=== PATIENT | female | born 1970 | race Caucasian/White ===

== ENCOUNTER 2018-10-28 00:11 | Emergency (ER) | payer OTHER, MEDICARE ==
--- NOTE | 2018-10-28 00:56 | EDM.PDOC ---
ED HPI GENERAL MEDICAL PROBLEM - General Chief Complaint: ENT Problem Stated Complaint: POSSIBLE STREP THROAT Time Seen by Provider: 10/28/18 00:45 Source of Information: Reports: Patient, Old Records, RN History Limitations: Reports: No Limitations - History of Present Illness INITIAL COMMENTS - FREE TEXT/NARRATIVE: 47 yo female here with recent onset of sore throat. Is concerned about strep. Does not need a note for work. Is on immunotherapy for Crohn's Dz. Onset: Gradual Onset Date: 10/27/18 Duration: Hour(s):, Getting Worse Location: Reports: Neck (throat) Quality: Reports: Burning Severity: Moderate Improves with: Reports: Medication Worsens with: Reports: Other (?) Context: Reports: Other (See HPI) Associated Symptoms: Reports: Fever/Chills. 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 Pain Score (Numeric/FACES): 9 - Related Data Allergies Allergy/AdvReac Type Severity Reaction Status Date / Time cephalexin [Cephalexin] Allergy Swelling Verified 10/28/18 00:26 iodine Allergy Hives Verified 10/28/18 00:26 morphine Allergy Hives Verified 10/28/18 00:26 Home Meds: Home Meds Pregabalin [Lyrica] 200 mg PO DAILY 10/28/18 [History] Ustekinumab [Stelara] 45 mg SQ Q2M 10/28/18 [History] oxyCODONE HCl [Oxycodone HCl] 30 mg PO 6XDAY 10/28/18 [History] Past Medical History Gastrointestinal History: Reports: Other (See Below) Other Gastrointestinal History: crohn s Genitourinary History: Reports: Renal Calculus, UTI, 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: Immunologic History: Reports: Immunosuppression - Past Surgical History GI Surgical History: Reports: Appendectomy, Colon, Lysis of Adhesions, Small Bowel, Other (See Below) Other GI Surgeries/Procedures: removal of abscess Female Surgical History: Reports: Section Social & Family History - Tobacco Use Smoking Status *Q: Current Every Day Smoker Years of Tobacco use: 28 Packs/Tins Daily: 0.5 - Caffeine Use Caffeine Use: Reports: Coffee, Soda - Recreational Drug Use Recreational Drug Use: No ED ROS ENT - Review of Systems Review Of Systems: See Below Constitutional: Reports: Fever, Chills, Malaise HEENT: Reports: Throat Pain Respiratory: Reports: No Symptoms Cardiovascular: Reports: No Symptoms Endocrine: Reports: No Symptoms GI/Abdominal: Reports: No Symptoms : Reports: No Symptoms Skin: Reports: No Symptoms Neurological: Reports: No Symptoms ED EXAM, ENT - Physical Exam Exam: See Below Exam Limited By: No Limitations General Appearance: Alert, WD/WN, No Apparent Distress Eye Exam: Bilateral Eye: Normal Inspection Ears: Normal External Exam, Normal Canal, Hearing Grossly Normal, Normal TMs Nose: Normal Inspection, Normal Mucousa, No Blood Mouth/Throat: Normal Lips, Pharyngeal Erythema, Tonsillar Erythema, Tonsillar Exudates Head: Atraumatic, Normocephalic Extremities: Normal Inspection Neurological: Alert, Oriented, CN II-XII Intact, Normal Cognition, No Motor/ Sensory Deficits Psychiatric: Normal Affect, Normal Mood Skin: Warm, Dry, Intact, Normal Color, No Rash Course - Vital Signs Last Recorded V/S: Last Vital Signs Temp 36.3 C 10/28/18 00:32 Pulse 89 10/28/18 00:32 Resp 18 10/28/18 00:32 BP 119/75 10/28/18 00:32 Pulse Ox 92 L 10/28/18 00:32 Departure - Departure Time of Disposition: 00:54 Disposition: Home, Self-Care 01 Condition: Fair Clinical Impression: Strep tonsillitis - Discharge Information *PRESCRIPTION DRUG MONITORING PROGRAM REVIEWED*: No *COPY OF PRESCRIPTION DRUG MONITORING REPORT IN PATIENT LEIDA: No Instructions: Strep Throat Referrals: Mustapha Torres MD [Primary Care Provider] - Additional Instructions: Take cephalexin as directed for your infection. Wash your hands often to prevent spread. Use acetaminophen or [place] for pain relief. Drink ample fluids and get plenty of rest. Recheck if worse.
== END 2018-10-28 01:09 | disposition home or self-care (01) ==
LOC: JP.ED 00:11
DX: J03.00 Acute streptococcal tonsillitis, unspecified (principal); F17.210 Nicotine dependence, cigarettes, uncomplicated; Z88.1 Allergy status to other antibiotic agents; Z88.5 Allergy status to narcotic agent; Z91.048 Other nonmedicinal substance allergy status; Z79.899 Other long term (current) drug therapy; Z87.442 Personal history of urinary calculi
CPT/HCPCS: 87880-QW; 99283

== ENCOUNTER 2022-04-10 20:09 | Emergency (ER) | payer BC, MEDICARE ==
[2022-04-10 20:57] LABS: ESTIMATED GFR 78 mL/min (>60)
[2022-04-10] MEDS ORDERED: Potassium Chloride 10 MEQ in Premix Bag 1 BAG IV ONE (20:59)
[2022-04-10] MEDS ORDERED: Sodium Chloride 0.9% 10 ML Syringe FLUSH PRN (20:59)
[2022-04-10] MEDS: Potassium Chloride 10 MEQ in Premix Bag 1 BAG IV ONE ×4 (22:51→23:40)
[2022-04-11] MEDS: Potassium Chloride 10 MEQ in Premix Bag 1 BAG IV ONE ×2 (00:40)
== END 2022-04-11 02:05 | disposition home or self-care (01) ==
LOC: JP.ED 20:09
DX: E87.6 Hypokalemia (principal); K91.2 Postsurgical malabsorption, not elsewhere classified; I44.4 Left anterior fascicular block; Z88.1 Allergy status to other antibiotic agents; Z88.5 Allergy status to narcotic agent; Z91.041 Radiographic dye allergy status; Z79.899 Other long term (current) drug therapy
CPT/HCPCS: 36415; 80048; 83735; 84132; 93005; 96365; 96366; 99285; J3480; J3490

== ENCOUNTER 2023-06-18 10:46 | Emergency (ER) | payer BC, MEDICARE ==
[2023-06-18] MEDS: Prochlorperazine 10 MG/2 ML SDV IVPUSH ONE (12:06)
[2023-06-18] MEDS: Ketorolac 15 MG/ML SDV IVPUSH ONE (12:06)
[2023-06-18] MEDS: Sodium Chloride 0.9% 1,000 ML IV SCH (12:06)
[2023-06-18 12:33] LABS: A/G RATIO 0.9 (1.2-2.2); ALANINE AMINOTRANSFERASE,ALT 15 U/L (12-78); ALBUMIN 3.7 g/dL (3.4-5.0); ALKALINE PHOSPHATASE 116 U/L (46-116); ANION GAP 11.1 mmol/L (5.0-14.0); ASPARTATE AMNIOTRANSFERASE,AST 13 U/L (15-37); BILIRUBIN TOTAL 0.4 mg/dL (0.2-1.0); BLOOD UREA NITROGEN,BUN 9 mg/dL (7-18); CALCIUM 9.8 mg/dL (8.5-10.1); CARBON DIOXIDE,CO2 28 mmol/L (21-32); CHLORIDE,CL 102 mmol/L (100-108); EST CRCL DRUG DOSING (CG) 55.06 mL/min; ESTIMATED GFR 68 mL/min (>60); GLUCOSE RANDOM 131 mg/dL (74-106); MAGNESIUM 1.7 mg/dL (1.8-2.4); POTASSIUM,K 3.8 mmol/L (3.6-5.2); PROTEIN TOTAL,TP 7.8 g/dL (6.4-8.2); SODIUM,NA 141 mmol/L (140-148)
[2023-06-18 12:34] LABS: TROPONIN I HIGH SENSITIVITY < 4.0 pg/mL (<=60.3)
[2023-06-18] MEDS: oxyCODONE 5 MG Tab PO ONE (13:44)
== END 2023-06-18 15:05 | disposition home or self-care (01) ==
LOC: JP.ED 10:46
DX: R11.2 Nausea with vomiting, unspecified (principal); F17.200 Nicotine dependence, unspecified, uncomplicated; Z88.1 Allergy status to other antibiotic agents; Z91.041 Radiographic dye allergy status; Z88.5 Allergy status to narcotic agent; Z88.8 Allergy status to other drugs, medicaments and biological substances
CPT/HCPCS: 36415; 80053; 83735; 84484; 85025; 93005; 93010; 96361; 96374; 96375; 99283; 99284-25; A9270-GY; J0780; J1885; J7030

== ENCOUNTER 2023-08-07 18:12 | Emergency (ER) | payer BC, MEDICARE ==
[2023-08-07] MEDS: HYDROmorphone 2 MG Tab PO ONE (20:03)
== END 2023-08-07 20:12 | disposition home or self-care (01) ==
LOC: JP.ED 18:12
DX: K50.90 Crohn's disease, unspecified, without complications (principal); K90.829 Short bowel syndrome, unspecified; Z79.891 Long term (current) use of opiate analgesic; Z88.1 Allergy status to other antibiotic agents; Z91.041 Radiographic dye allergy status; Z88.5 Allergy status to narcotic agent; Z79.899 Other long term (current) drug therapy; F17.210 Nicotine dependence, cigarettes, uncomplicated
CPT/HCPCS: 99281; A9270

== ENCOUNTER 2023-09-27 14:42 | Emergency (ER) | payer BC, MEDICARE ==
[2023-09-27] MEDS ORDERED: Naloxone 0.4 MG/ML SDV IVPUSH PRN (15:31)
[2023-09-27] MEDS ORDERED: Pregabalin 75 MG Cap PO ONE (15:32)
[2023-09-27 15:42] LABS: BASOPHILS ABSOLUTE AUTO 0.04 K/uL (0.00-0.10); BASOPHILS PERCENT AUTO 0.3 % (0.1-1.3); HEMATOCRIT 50.6 % (34.3-46.0); HEMOGLOBIN 17.9 g/dL (11.2-15.5); IMMATURE GRAN ABSOLUTE AUTO 0.04 K/uL (0.00-0.23); IMMATURE GRAN PERCENT AUTO 0.3 % (0.0-0.7); LYMPHOCYTES ABSOLUTE AUTO 1.83 K/uL (0.8-3.3); LYMPHOCYTES PERCENT AUTO 15.3 % (11.4-47.7); MEAN CORPUSCULAR HEMOGLOBIN 31.3 pg (31.6-35.5); MEAN CORPUSCULAR HGB CONC 35.4 g/dL (31.6-35.5); MEAN CORPUSCULAR VOLUME 88.6 fL (81.4-99.0); MONOCYTES ABSOLUTE AUTO 0.31 K/uL (0.20-0.90); MONOCYTES PERCENT AUTO 2.6 % (3.3-12.6); NEUTROPHILS ABSOLUTE AUTO 9.72 K/uL (1.0-7.6); NEUTROPHILS PERCENT AUTO 81.5 % (40.0-78.1); PLATELET COUNT,PLT 207 K/uL (130-375); RED BLOOD CELL COUNT 5.71 M/uL (3.77-5.24); WHITE BLOOD CELL COUNT,WBC 11.9 K/uL (3.2-11.0)
[2023-09-27 16:01] LABS: ALANINE AMINOTRANSFERASE,ALT 19 U/L (12-78); ALBUMIN 4.1 g/dL (3.4-5.0); ALKALINE PHOSPHATASE 131 U/L (46-116); ANION GAP 9.5 mmol/L (5.0-14.0); ASPARTATE AMNIOTRANSFERASE,AST 15 U/L (15-37); BILIRUBIN TOTAL 0.5 mg/dL (0.2-1.0); BLOOD UREA NITROGEN,BUN 7 mg/dL (7-18); CALCIUM 9.6 mg/dL (8.5-10.1); CARBON DIOXIDE,CO2 29 mmol/L (21-32); CHLORIDE,CL 104 mmol/L (100-108); CREATININE 1.1 mg/dL (0.6-1.0); EST CRCL DRUG DOSING (CG) 50.05 mL/min; ESTIMATED GFR 61 mL/min (>60); GLUCOSE RANDOM 126 mg/dL (74-106); POTASSIUM,K 3.6 mmol/L (3.6-5.2); PROTEIN TOTAL,TP 8.4 g/dL (6.4-8.2); SODIUM,NA 142 mmol/L (140-148)
[2023-09-27 16:03] LABS: C-REACTIVE PROTEIN < 0.50 mg/dL (<0.50)
[2023-09-27] MEDS: Sodium Chloride 0.9% 1,000 ML IV ONE ×2 (16:12→17:20)
[2023-09-27] MEDS: Prochlorperazine 10 MG/2 ML SDV IVPUSH ONE (16:13)
[2023-09-27] MEDS: HYDROmorphone 0.5 MG/0.5 ML Syringe IVPUSH PRN (16:19)
[2023-09-27] MEDS: Pregabalin 100 MG Cap PO ONE (16:20)
[2023-09-27 17:12] LABS: APPEARANCE,URINE SLIGHTLY CLOUDY (CLEAR); BILIRUBIN,URINE NEGATIVE (NEGATIVE); COLOR,URINE YELLOW (YELLOW); GLUCOSE,URINE NEGATIVE (NEGATIVE); KETONES,URINE NEGATIVE (NEGATIVE); LEUKOCYTE ESTERASE,URINE NEGATIVE (NEGATIVE); NITRITE,URINE NEGATIVE (NEGATIVE); OCCULT BLOOD,URINE NEGATIVE (NEGATIVE); PROTEIN,URINE 30 mg/dL (NEGATIVE); UROBILINOGEN,URINE 0.2 EU/dL (0.2-1.0)
[2023-09-27 17:17] LABS: AMORPHOUS SEDIMENT,URINE NOT SEEN; BACTERIA,URINE FEW; EPITHELIAL CELLS,URINE FEW; MUCUS,URINE FEW; RBC,URINE 0-5 (0-5); WBC,URINE 0-5 (0-5)
[2023-09-27 17:18] LABS: AMPHETAMINES SCREEN, URINE NEGATIVE (NEGATIVE); BARBITURATE SCREEN,URINE NEGATIVE (NEGATIVE); BENZODIAZEPINES SCREEN,URINE NEGATIVE (NEGATIVE); METHADONE SCREEN, URINE NEGATIVE (NEGATIVE); METHAMPHETAMINES SCREEN, URINE NEGATIVE (NEGATIVE); OXYCODONE SCREEN,URINE NEGATIVE (NEGATIVE); PROPOXYPHENE SCREEN,URINE NEGATIVE (NEGATIVE); THC SCREEN,URINE 50 NG/ML NEGATIVE (NEGATIVE)
[2023-09-27 17:21] LABS: CORONAVIRUS COVID-19 NAA NEGATIVE (NEGATIVE); INFLUENZA A NAA NEGATIVE (NEGATIVE); INFLUENZA B NAA NEGATIVE (NEGATIVE); RESPIRATORY SYNCYTIAL VIR NAA NEGATIVE (NEGATIVE)
[2023-09-27] MEDS: HYDROmorphone 0.5 MG/0.5 ML Syringe IVPUSH ONE (17:55)
== END 2023-09-27 18:22 | disposition home or self-care (01) ==
LOC: JP.ED 14:42
DX: K50.919 Crohn's disease, unspecified, with unspecified complications (principal); E86.0 Dehydration; Z90.49 Acquired absence of other specified parts of digestive tract; Z79.899 Other long term (current) drug therapy; Z79.891 Long term (current) use of opiate analgesic; Z88.1 Allergy status to other antibiotic agents; Z88.5 Allergy status to narcotic agent; Z91.048 Other nonmedicinal substance allergy status
CPT/HCPCS: 0241U; 36415; 80053; 80305; 81001; 83605; 83690; 84145; 85025; 85379; 86140; 96361; 96374; 96375; 96376; 99284; A9270; J0780; J1170; J7030

== ENCOUNTER 2024-02-25 17:05 | Emergency (ER) | payer BC, MEDICARE ==
[2024-02-25] MEDS: Albuterol/Ipratropium 3.0-0.5 MG/3 ML Neb Soln NEB ONE (17:58)
[2024-02-25] MEDS: Ondansetron 4 MG Tab.DIS PO ONE (17:59)
[2024-02-25] MEDS: Oseltamivir 75 MG Cap PO ONE (17:59)
[2024-02-25] MEDS: Ketorolac 30 MG/ML SDV IM ONE (19:02)
== END 2024-02-25 19:05 | disposition home or self-care (01) ==
LOC: JP.ED 17:05
DX: J10.1 Influenza due to other identified influenza virus with other respiratory manifestations (principal); Z90.49 Acquired absence of other specified parts of digestive tract; Z72.0 Tobacco use; Z88.0 Allergy status to penicillin; Z88.5 Allergy status to narcotic agent; Z88.1 Allergy status to other antibiotic agents; Z91.041 Radiographic dye allergy status; Z79.51 Long term (current) use of inhaled steroids; Z79.899 Other long term (current) drug therapy
CPT/HCPCS: 96372; 99284; A9270; J1885; Q0162; J7620